=== PATIENT | male | born 1965 | race Caucasian/White ===

== ENCOUNTER 2016-09-03 18:11 | Emergency (ER) ==
[2016-09-03 18:24] VITALS: BP 132/89
[2016-09-03] MEDS ORDERED: ZOFRAN ODT PO ONE (19:09)
[2016-09-03] MEDS ORDERED: IMODIUM PO ONE (19:10)
--- NOTE | 2016-09-03 19:15 | PROVIDER DOCUMENTATION ---
HPI-Abdominal Pain/GI Problem - General Chief Complaint: Diarrhea Stated Complaint: BODY PAINS, DIARRHEA Time Seen by Provider: 09/03/16 19:05 Allergies/Adverse Reactions: Patient Allergies Allergy/AdvReac Type Severity Reaction Status Date / Time No Known Allergies Allergy Verified 07/13/16 04:43 Home Medications: Home Medication List Medication Instructions Recorded Confirmed Last Taken Type Amoxicillin 500 mg PO BID 07/13/16 07/13/16 07/12/16 21:00 History Azithromycin [Zithromax Z-Rajinder] 250 mg PO DIRECTED #1 pkg 07/13/16 Unknown Rx Methylprednisolone [Medrol Dosepak] 1 each PO DIRECTED 07/13/16 07/13/16 21:00 History Naproxen [Naprosyn] 500 mg PO BID #20 tablet 07/13/16 Unknown Rx Pantoprazole [Protonix] 40 mg PO DAILY 07/13/16 07/13/16 07/12/16 09:00 History Ondansetron [Zofran] 4 mg PO Q6H PRN PRN #20 tablet 09/03/16 Unknown Rx - History of Present Illness-ABD Nature of Presenting Problems: PT started having abd cramping and nausea and diarrhea at 11am this morning. He has not had vomiting or fever of chills. He complains of general fatigue and body aches. Review of Systems - Adult - REVIEW OF SYSTEMS - ADULT Constitutional: reports: see HPI, fatique. denies: chills, fever, night sweats , weight gain, weight loss Eyes: reports: no symptoms reported. denies: discharge, dry eyes, decreased vision, blurred vision, double vision Ears, Nose, Mouth & Throat: reports: no symptoms reported. denies: ear discharge, ear pain, hearing loss, epistaxis, nose pain, mouth swelling, hoarseness, throat swelling Cardiovascular: reports: no symptoms reported. denies: see HPI, edema, heart murmur, irregular heart rate, palpitations, poor circulation Respiratory: reports: no symptoms reported. denies: chronic cough, shortness of breath, wheezing Gastrointestinal: reports: see HPI, abdominal pain, diarrhea, nausea. denies: hematemesis, constipation, difficulty swallowing, frequent heartburn, poor appetite, rectal bleeding, vomiting Genitourinary: reports: no symptoms reported. denies: dysuria, discharge, flank pain, frequent UTI's, hematuria, incontinence, urinary retention, urgency Musculoskeletal: reports: no symptoms reported. denies: bone pain, back pain, frequent leg cramps, joint pain, joint swelling, muscle aches, muscle weakness, neck pain Integumentary: reports: no symptoms reported. denies: hives, hair loss, itching , mole changes, rash, skin sores/ulcer, skin thickening Neurological: reports: no symptoms reported. denies: ataxia, dizziness/vertigo , headache/migraines, loss of balance, numbness, syncope, tremors Psychiatric: reports: no symptoms reported. denies: anxiety, anti-depressant use, alcohol/drug dependence, depression, emotional problems, insomnia, panic attacks, suicidal thoughts Endocrine: reports: no symptoms reported. denies: change in skin pigment, excessive sweating, goiter, cold intolerance, increased hunger, increased thirst Hematologic/Lymphatic: reports: no symptoms reported. denies: blood clots, easy bruising, low blood count, prolonged bleeding, swollen lymph nodes, transfusions Allergic/Immunologic: reports: no symptoms reported. denies: allergic reactions , allergic rhinitis, asthma, eczema, food allergy, frequent infections, positive PPD, urticaria All Other Systems: Reviewed and Negative Past History - Adult - PAST MEDICAL HISTORY-ADULT Review of Records: reports: Old Records Reviewed, Nursing Assessment Review, Medications Reviewed, Social history reviewed & non-contributory. Major Childhood Illnesses: reports: denies history Cardiovascular: reports: denies history Respiratory: reports: denies history Gastrointestinal: reports: GERD Obstetrical/Gynecological: reports: denies history Genitourinary: reports: denies history Musculoskeletal: reports: denies history Neurological: reports: denies history Endocrine/Immune: reports: denies history Other Conditions: reports: denies history - PRIOR SURGERIES/PROCEDURES Surgical/Procedure History: reports: reviewed, not pertinent - PRIOR HOSPITALIZATIONS Prior Hospitalizations: reports: none - IMMUNIZATION STATUS Childhood Immunizations: See Nurse Assessment Flu Vaccine: See Nurse Assessment - FAMILY HISTORY Family History: reviewed, not pertinent - SOCIAL HISTORY Smoking: denies Substance Use: none/never Alcohol Use Frequency: never Living Situation: family Physical Exam-General - PHYSICAL EXAM-ADULT Initial Vital Signs Reviewed: Yes - CONSTITUTIONAL General Appearance: appears well, alert, no apparent distress - EYES Eyes: PERRL/EOMI, pink conjunctivae - HEAD, EARS, NOSE, MOUTH & THROAT HENMT: normocephalic/atraumatic, moist mucous membranes, normal ENT inspection - NECK Neck: non-tender, full range of motion - RESPIRATORY Respiratory: chest non-tender, lungs clear, normal breath sounds, no pleuratic chest pain - CARDIOVASCULAR Cardiovascular: normal peripheral pulses, regular rate, rhythm - GASTROINTESTINAL (ABDOMEN) Abdominal Exam: normal bowel sounds, non tender, soft, no organomegaly, no pulsatile mass - MUSCULOSKELETAL Back Exam: normal inspection, no CVA tenderness Extremity: normal range of motion, non-tender, normal gait, normal inspection - SKIN Integumentary: normal color, normal turgor, warm/dry - NEUROLOGIC Neurologic: director information security II-XII nml as tested, grossly normal - PSYCHIATRIC Psych/Mental Status: normal mood/affect, normal thought content, normal thought process, oriented x 3 Progress - PLAN OF CARE/RESULTS Progress/Plan/Lab Results: Orders Category Date Time Status PO Fluid Challenge DIRECTED Care 09/03/16 19:12 Active Flu Swab [INFLUENZA SCREEN A/B] Stat Lab 09/03/16 18:25 Completed Loperamide [Imodium] Med 09/03/16 19:10 Discontinued 4 mg PO NOW ONE Ondansetron Odt [Zofran Odt] Med 09/03/16 19:09 Discontinued 4 mg PO NOW ONE Vital Signs - 24 hr 09/03/16 18:23 Temperature 98.4 F Pulse Rate 105 H Respiratory 20 Rate Blood Pressure 132/89 O2 Sat by Pulse 100 Oximetry Departure - Departure Time of Disposition Order: 19:17 (use antidiarrheal of pts choice as needed ) DIAGNOSIS: Viral illness Diarrhea Qualifiers: Diarrhea type: unspecified type Qualified Code(s): R19.7 - Diarrhea, unspecified Disposition: HOME 01 Certified Medical Emergency: Emergent Condition: Good Additional Instructions: follow up with PCP if symptoms persist or worsen. Drink plenty of fluids ED Follow Up Instructions: You have been treated by a care provider in the Emergency Department. These instructions are being provided to you so you can have an understanding of how to care for yourself upon discharge. Upon discharge from the Emergency Department, you are responsible for making arrangements for follow-up care by a physician of your choice. Take all prescribed medications as directed. Return to the Emergency Department immediately for any new or worsening symptoms. You may call the Physician Referral phone number at [phone] to obtain a list of Physicians who are taking new patients. Prescriptions: Ondansetron [Zofran] 4 mg PO Q6H PRN PRN #20 tablet PRN Reason: Nausea Attestation - Physician/ DELLA Attestation Patient care was provided by Advanced Practice Provider:: Yes Advanced Practice Provider:: Amor Palacios Advanced Practice Provider documentation review:: The Mid-level provider documentation, treatment plan and medical decision making was reviewed by the physician who agrees with all treatment and medical decision making by the MLP.
== END 2016-09-03 19:57 | disposition home or self-care (01) ==
LOC: ED 18:11
DX: B34.9 Viral infection, unspecified (principal); R19.7 Diarrhea, unspecified; R10.9 Unspecified abdominal pain; R53.83 Other fatigue; R11.0 Nausea; K21.9 Gastro-esophageal reflux disease without esophagitis; Z79.899 Other long term (current) drug therapy
CPT/HCPCS: 87804